=== PATIENT | male | born 1960 | race Two or more races ===

== ENCOUNTER 2018-10-18 22:17 | Emergency (ER) | payer OTHER ==
[~2018-10-18] VITALS: Ht 175.3 cm; Wt 74.8 kg
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
--- NOTE | 2018-10-18 22:20 | NUR ---
C-spine cleared by Dr. Simeon. Patient able to move all extremities.
[2018-10-18] MEDS ORDERED: DEXTROSE 50% 50 ML DISP.SYRIN ONE (22:27)
[2018-10-18] MEDS ORDERED: REGULAR INSULIN (22:31)
[2018-10-18] MEDS ORDERED: [UNRECOGNIZED DRUG - OTHER] (22:31)
--- NOTE | 2018-10-18 22:33 | NUR ---
2 [employer] officers at bedside to interview pt.
[2018-10-18] MEDS ORDERED: DEXTROSE 50% 50 ML DISP.SYRIN IV ONE (22:45)
--- NOTE | 2018-10-18 23:04 | NUR ---
Re-checked pt fingerstick blood glucose, which read 132. AAOX4. Notified
--- NOTE | 2018-10-18 23:05 | NUR ---
Provided pt sandwich & water. Pt states he feels much better.
--- NOTE | 2018-10-19 00:05 | NUR ---
IV removed. Catheter intact and site benign. Pressure and 4x4 gauze applied to site. No bleeding noted.
--- NOTE | 2018-10-19 00:13 | NUR ---
Patient discharged to home in stable conditon. Written and verbal after care instructions given. Patient verbalizes understanding of instructions. Pt ambulated out of ER in steady gait. All belongings with pt. VSS. NAD noted. AAOX4. Pt to be picked up by taxi.
[2018-10-19 00:14] VITALS: BP 132/69
== END 2018-10-19 00:15 | disposition home or self-care (01) ==
LOC: ER 22:19
DX: E11.649 Type 2 diabetes mellitus with hypoglycemia without coma (principal); Z79.4 Long term (current) use of insulin
CPT/HCPCS: 82962 ×2; 96374; 99283; J3490; A4663